=== PATIENT | male | born 1950 | race Caucasian/White ===

== ENCOUNTER 2020-08-05 12:28 | Emergency (ER) | payer MEDICARE, OTHER ==
[~2020-08-05] VITALS: Ht 172.7 cm; Wt 63.5 kg
--- NOTE | 2020-08-05 12:28 | NUR ---
PT BIBRA FROM HOME C/O SOB AND SHARP CHEST PAIN. HX LUNG CA. PT IS AAOX4 [place] SPEAKING ONLY, NOT IN RESPIRATORY DISTRESS, HOOKED TO MEDICAL STAFF CREDENTIALING COORDINATOR, KEPT RESTED AND COMFORTABLE. WILL CONTINUE TO MONITOR.
--- NOTE | 2020-08-05 12:33 | NUR ---
AT BEDSIDE FOR EVAL.
--- NOTE | 2020-08-05 12:47 | NUR ---
BLOOD DRAWN AND SENT TO LAB.
[2020-08-05 13:10] LABS: BASOPHILS # (AUTO) 0.1 /CMM (0.0-0.2); BASOPHILS % (AUTO) 0.5 % (0.0-2.0); EOSINOPHILS % (AUTO) 0.5 % (0.0-6.0); HEMATOCRIT 39 % (39-51); HEMOGLOBIN 13.4 g/dL (13.5-17.5); LYMPHOCYTES # (AUTO) 1.5 /CMM (0.8-4.8); LYMPHOCYTES % (AUTO) 14.2 % (20.0-44.0); MEAN CORPUSCULAR HGB CONC 34 g/dl (31.0-36.0); MEAN CORPUSCULAR VOLUME 87 fL (80-96); MONOCYTES % (AUTO) 9.3 % (2.0-12.0); NEUTROPHILS % (AUTO) 75.5 % (43.0-81.0); PLATELET COUNT (AUTO) 152 /CMM (150-450); RED BLOOD CELL COUNT(AUTO) 4.47 MIL/uL (4.5-6.0); WHITE BLOOD COUNT (AUTO) 10.7 K/uL (4.3-11.0)
[2020-08-05 13:35] LABS: ALANINE AMINOTRANSFERASE 73 U/L (12-78); ALBUMIN 3.2 g/dL (3.4-5.0); ALKALINE PHOSPHATASE 178 U/L (46-116); ASPARTATE AMINOTRANSFERASE 21 U/L (15-37); BILIRUBIN,DIRECT 0.1 mg/dL (0.0-0.2); BILIRUBIN,TOTAL 0.6 mg/dL (0.2-1.0); CALCIUM, SERUM 9.2 mg/dL (8.5-10.1); CARBON DIOXIDE 27 mmol/L (21-32); CHLORIDE 102 mmol/L (98-107); CREATININE 0.8 mg/dL (0.6-1.3); GLUCOSE 210 mg/dL (74-106); POTASSIUM 3.8 mmol/L (3.5-5.1); SODIUM SERUM 138 mmol/L (136-145); TOTAL PROTEIN, SERUM 6.8 g/dL (6.4-8.2); UREA NITROGEN, BLOOD 23 mg/dL (7-18)
[2020-08-05] MEDS ORDERED: IV NS 0.9% 250 ML IV ONE (13:47)
[2020-08-05] MEDS ORDERED: IOHEXOL-300 100 ML VIAL IV ONE (13:47)
--- NOTE | 2020-08-05 13:54 | NUR ---
PT IS WHEELED TO CT SCAN VIA [facility].
--- NOTE | 2020-08-05 15:29 | NUR ---
PT'S ONCO, DR BENDER CONTACTED TALKING TO DR STEWART.
[2020-08-05 15:52] VITALS: BP 122/73
--- NOTE | 2020-08-05 15:52 | NUR ---
Patient discharged to home in stable condition. Written and verbal after care instructions given. Patient verbalizes understanding of instruction.
== END 2020-08-05 16:14 | disposition home or self-care (01) ==
LOC: ER 12:28
DX: R06.00 Dyspnea, unspecified (principal); F41.9 Anxiety disorder, unspecified; E11.9 Type 2 diabetes mellitus without complications; Z85.118 Personal history of other malignant neoplasm of bronchus and lung
CPT/HCPCS: 36415; 71045; 71275; 80048; 80076; 83605; 84484; 85025; 85730; 87040 ×2; 93005; 99285; J7050; Q9967